=== PATIENT | female | born 1970 ===

== ENCOUNTER → 2019-04-03 | Outpatient (CLI) | payer BC ==
--- NOTE | 2019-04-03 13:25 | KCIC ---
MR of the left knee HISTORY: Left knee pain and instability. Anterior joint line pain for 2 months. TECHNIQUE: Routine multiplanar sequences are obtained. FINDINGS: Abnormal signal at the posterior root attachment of the medial meniscus compatible with a tear. Mild medial meniscal subluxation. No evidence of lateral meniscal tear. Anterior and posterior cruciate ligaments are intact. Medial collateral ligament is intact. Iliotibial band unremarkable. Fibular collateral ligament, biceps femoris tendon and popliteus tendon are intact. Extensor mechanism is intact. Small joint effusion. No significant Gracia's cyst. At least mild chondromalacia at the medial joint compartment. At least mild chondral thinning of the patella. No acute fracture or aggressive bone destruction. IMPRESSION: 1. Tear at the posterior root attachment of the medial meniscus. 2. At least mild degenerative chondromalacia. 3. Small joint effusion. Electronically signed by: Valeriy Stringer MD (04/03/2019 1:22 PM) [id number]
== END | disposition home or self-care (01) ==
LOC: KCIC MRI 10:23
PROVIDERS: ATTEND Internal Medicine
DX: S83.242A Other tear of medial meniscus, current injury, left knee, initial encounter (principal); M94.262 Chondromalacia, left knee; X58.XXXA Exposure to other specified factors, initial encounter; Y93.89 Activity, other specified; Y92.89 Other specified places as the place of occurrence of the external cause; Y99.8 Other external cause status
CPT/HCPCS: 73721